=== PATIENT | male | born 1960 | race Caucasian/White ===

== ENCOUNTER → 2020-03-04 | Outpatient (CLI) | payer OTHER | LOC: M.CT 07:59 | PROVIDERS: ATTEND Internal Medicine Cardiovascular Disease | DX: Z13.6 Encounter for screening for cardiovascular disorders (principal) ==

== ENCOUNTER 2020-03-13 18:53 | Inpatient (IN) | payer OTHER ==
[~2020-03-13] VITALS: Ht 190.5 cm; Wt 109.6 kg
[2020-03-13 19:05] VITALS: BP 170/88
[2020-03-13 19:42] LABS: ABSOLUTE LYMPHOCYTES 0.8 thou/uL (0.8-5.3); ABSOLUTE MONOCYTES 0.7 thou/uL (0.0-1.2); ABSOLUTE NEUTROPHILS 4.7 thou/uL (1.6-8.1); BASOPHILS 0.8 %; EOSINOPHILS 0.1 %; HEMATOCRIT 44.6 % (42.0-52.0); HEMOGLOBIN 15.2 gm/dL (14.0-18.0); LYMPHOCYTES 13.1 %; MCH 29.4 pg (26.0-34.0); MCHC 34.1 g/dL (28.0-37.0); MCV 86.2 fL (80.0-100.0); MONOCYTES 10.9 %; MPV 7.9 fl. (7.2-11.1); NUCLEATED RBCS 0 /100WBC; PLATELET COUNT* 255 thou/uL (150-400); POLYS 75.1 %; RBC 5.18 mil/uL (4.50-6.00); RDW-CV 12.4 % (10.5-14.5); WBC 6.3 thou/uL (4.0-11.0)
[2020-03-13 19:52] LABS: CALCIUM 7.9 mg/dL (8.5-10.1); POTASSIUM 4.1 mmol/L (3.5-5.1)
[2020-03-13 19:54] LABS: PROTIME 10.8 Seconds (9.20-11.50)
[2020-03-13 20:02] LABS: ALBUMIN 2.8 g/dL (3.4-5.0); MAGNESIUM 1.8 mg/dL (1.8-2.4); TOTAL BILIRUBIN 0.7 mg/dL (<0.1-1.0); TOTAL PROTEIN 6.9 g/dL (6.4-8.2)
[2020-03-13 21:10] LABS: INFLUENZA A ANTIGEN Negative (Negative); INFLUENZA B ANTIGEN Negative (Negative)
[2020-03-13 21:50] VITALS: BP 131/82
[2020-03-13 22:08] VITALS: BP 138/75
[2020-03-14 00:39] VITALS: BP 116/55
[2020-03-14 04:39] VITALS: BP 119/74
[2020-03-14 08:00] VITALS: BP 121/69
--- NOTE | 2020-03-14 10:18 | EKG ---
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 : 1960 Requested By: Nereida Odom Order Number: [id number] MD: Aditya Quintero Measurements Intervals Blain Rate: 96 P: 10 IL: 159 QRS: -5 QRSD: 84 T: 24 QT: 329 QTc: 416 Interpretive Statements Sinus rhythm Probable left atrial enlargement No previous ECG available for comparison Electronically Signed On 03-14-2020 10:18:04 [employer] by Aditya Quintero [email or web address] <ELECTRONICALLY SIGNED> By: Aditya Quintero MD, [facility] 03/14/20 1018 26 26 Aditya Quintero MD, [facility] /EPI
[2020-03-14 12:00] VITALS: BP 129/75
[2020-03-14 16:00] VITALS: BP 147/75
[2020-03-14 21:43] VITALS: BP 123/77
[2020-03-15] VITALS (8 sets, daily range): BP systolic 108–142; BP diastolic 45–75
[2020-03-15 06:36] LABS: HEMOGLOBIN 15.4 gm/dL (14.0-18.0); MCH 30.3 pg (26.0-34.0); MCHC 33.5 g/dL (28.0-37.0); MCV 90.5 fL (80.0-100.0); RBC 5.09 mil/uL (4.50-6.00); WBC 13.7 thou/uL (4.0-11.0)
[2020-03-15 07:22] LABS: ALBUMIN 2.7 g/dL (3.4-5.0); CALCIUM 8.7 mg/dL (8.5-10.1); CREATININE 1.2 mg/dL (0.6-1.3); MAGNESIUM 2.2 mg/dL (1.8-2.4); POTASSIUM 4.3 mmol/L (3.5-5.1); TOTAL BILIRUBIN 0.4 mg/dL (<0.1-1.0)
[2020-03-15 08:56] LABS: GLYCOHEMOGLOBIN (HGB A1C) 5.8 % (4.8-5.6)
[2020-03-16] VITALS: BP 112/53
[2020-03-16 04:00] VITALS: BP 138/63
[2020-03-16 06:00] VITALS: BP 110/76
[2020-03-16 07:33] LABS: HEMATOCRIT 37.6 % (42.0-52.0); MCH 29.3 pg (26.0-34.0); MCHC 33.8 g/dL (28.0-37.0); MCV 86.7 fL (80.0-100.0); MPV 8.6 fl. (7.2-11.1); NUCLEATED RBCS 0 /100WBC; PLATELET COUNT* 299 thou/uL (150-400); RBC 4.34 mil/uL (4.50-6.00); RDW-CV 12.4 % (10.5-14.5); WBC 15.2 thou/uL (4.0-11.0)
[2020-03-16 07:35] LABS: HEMOGLOBIN 12.7 gm/dL (14.0-18.0)
[2020-03-16 07:40] VITALS: BP 128/66
[2020-03-16 07:51] LABS: ALBUMIN 2.3 g/dL (3.4-5.0); CALCIUM 8.2 mg/dL (8.5-10.1); CREATININE 1.1 mg/dL (0.6-1.3); POTASSIUM 3.9 mmol/L (3.5-5.1); TOTAL BILIRUBIN 0.5 mg/dL (<0.1-1.0); TOTAL PROTEIN 6.1 g/dL (6.4-8.2)
[2020-03-16 08:30] LABS: ABSOLUTE LYMPHOCYTES 0.6 thou/uL (0.8-5.3); ABSOLUTE MONOCYTES 0.8 thou/uL (0.0-1.2); ABSOLUTE NEUTROPHILS 13.8 thou/uL (1.6-8.1); PLATELET ESTIMATE ADEQUATE
[2020-03-16 08:31] LABS: ANISOCYTOSIS 1+; POIKILOCYTOSIS 1+
[2020-03-16 09:21] LABS: PREALBUMIN 13.4 mg/dL (18.0-35.7)
[2020-03-16 18:22] VITALS: BP 142/64
[2020-03-16 21:22] VITALS: BP 113/72
[2020-03-17 04:00] VITALS: BP 108/66
[2020-03-17 08:05] VITALS: BP 119/70
[2020-03-17 11:16] LABS: ABSOLUTE LYMPHOCYTES 0.5 thou/uL (0.8-5.3); ABSOLUTE MONOCYTES 0.3 thou/uL (0.0-1.2); BASOPHILS 0.2 %; HEMATOCRIT 38.4 % (42.0-52.0); MCH 29.6 pg (26.0-34.0); MCHC 33.8 g/dL (28.0-37.0); MCV 87.6 fL (80.0-100.0); MONOCYTES 3.5 %; MPV 8.5 fl. (7.2-11.1); NUCLEATED RBCS 0 /100WBC; PLATELET COUNT* 282 thou/uL (150-400); POLYS 91.3 %; RBC 4.38 mil/uL (4.50-6.00); RDW-CV 12.1 % (10.5-14.5); WBC 9.8 thou/uL (4.0-11.0)
[2020-03-17 11:24] LABS: ALBUMIN 2.1 g/dL (3.4-5.0); CALCIUM 8.6 mg/dL (8.5-10.1); POTASSIUM 3.9 mmol/L (3.5-5.1); TOTAL BILIRUBIN 0.4 mg/dL (<0.1-1.0)
[2020-03-17 11:30] LABS: PREALBUMIN 12.8 mg/dL (18.0-35.7)
[2020-03-17 12:00] VITALS: BP 137/66
[2020-03-17 14:26] VITALS: BP 125/67
[2020-03-17 16:00] VITALS: BP 132/66
[2020-03-17 21:02] VITALS: BP 131/68
[2020-03-18 00:31] VITALS: BP 131/69; BP 142/61
[2020-03-18 04:32] VITALS: BP 145/76
[2020-03-18 05:42] LABS: ABSOLUTE BASOPHILS 0.1 thou/uL (0.0-0.2); ABSOLUTE LYMPHOCYTES 0.7 thou/uL (0.8-5.3); ABSOLUTE MONOCYTES 0.4 thou/uL (0.0-1.2); ABSOLUTE NEUTROPHILS 9.4 thou/uL (1.6-8.1); BASOPHILS 1.1 %; HEMATOCRIT 38.9 % (42.0-52.0); HEMOGLOBIN 13.2 gm/dL (14.0-18.0); LYMPHOCYTES 6.6 %; MCH 29.5 pg (26.0-34.0); MCHC 33.9 g/dL (28.0-37.0); MCV 86.8 fL (80.0-100.0); MONOCYTES 3.5 %; MPV 8.8 fl. (7.2-11.1); NUCLEATED RBCS 0 /100WBC; PLATELET COUNT* 313 thou/uL (150-400); POLYS 88.8 %; RBC 4.48 mil/uL (4.50-6.00); RDW-CV 12.5 % (10.5-14.5); WBC 10.5 thou/uL (4.0-11.0)
[2020-03-18 05:52] LABS: ALBUMIN 2.1 g/dL (3.4-5.0); CALCIUM 8.5 mg/dL (8.5-10.1); CREATININE 0.9 mg/dL (0.6-1.3); TOTAL BILIRUBIN 0.4 mg/dL (<0.1-1.0); TOTAL PROTEIN 5.8 g/dL (6.4-8.2)
[2020-03-18 05:54] LABS: PREALBUMIN 14.8 mg/dL (18.0-35.7)
[2020-03-18 09:35] VITALS: BP 145/67
[2020-03-18 12:00] VITALS: BP 129/67
[2020-03-18 16:00] VITALS: BP 142/69
[2020-03-18 20:30] VITALS: BP 153/71
[2020-03-19] VITALS: BP 139/79
[2020-03-19 03:50] VITALS: BP 134/77
[2020-03-19 06:08] LABS: ABSOLUTE LYMPHOCYTES 0.6 thou/uL (0.8-5.3); ABSOLUTE MONOCYTES 0.5 thou/uL (0.0-1.2); ABSOLUTE NEUTROPHILS 10.4 thou/uL (1.6-8.1); BASOPHILS 0.3 %; LYMPHOCYTES 5.5 %; MCH 29.6 pg (26.0-34.0); MCHC 34.1 g/dL (28.0-37.0); MCV 86.8 fL (80.0-100.0); MONOCYTES 4.2 %; MPV 8.8 fl. (7.2-11.1); NUCLEATED RBCS 0 /100WBC; PLATELET COUNT* 360 thou/uL (150-400); RBC 4.72 mil/uL (4.50-6.00); RDW-CV 12.4 % (10.5-14.5); WBC 11.6 thou/uL (4.0-11.0)
[2020-03-19 06:21] LABS: ALBUMIN 2.2 g/dL (3.4-5.0); CALCIUM 8.5 mg/dL (8.5-10.1); POTASSIUM 4.1 mmol/L (3.5-5.1); TOTAL BILIRUBIN 0.5 mg/dL (<0.1-1.0); TOTAL PROTEIN 5.8 g/dL (6.4-8.2)
[2020-03-19 06:22] LABS: PREALBUMIN 23.5 mg/dL (18.0-35.7)
[2020-03-19] MEDS ORDERED: DOXYCYCLINE 10100 MG PO (08:55)
[2020-03-19] MEDS ORDERED: PROTONIX40 M2 PO (08:55)
[2020-03-19] MEDS ORDERED: DEXAMETHASONE1 MG PO (08:55)
[2020-03-19] MEDS ORDERED: VENTOLIN HFA 1818 GM INH (08:55)
[2020-03-19 09:32] VITALS: BP 145/76
[2020-03-19 11:33] VITALS: BP 145/76
== END 2020-03-19 13:05 | disposition home or self-care (01) | DRG 871 ==
LOC: M.ERS 18:53 → M.TBA-ER 20:26 → M.ORTHSURG 20:26
PROVIDERS: Emergency Medicine; Internal Medicine; ADMIT Internal Medicine; ATTEND Internal Medicine
DX: A41.89 Other specified sepsis (principal); J15.6 Pneumonia due to other Gram-negative bacteria; J96.01 Acute respiratory failure with hypoxia; U07.1 COVID-19; J12.89 Other viral pneumonia; Z28.21 Immunization not carried out because of patient refusal